=== PATIENT | male | born 1950 | race Two or more races ===

== ENCOUNTER 2022-08-25 11:15 | Inpatient (IN) | payer OTHER ==
[~2022-08-25] VITALS: Ht 170.2 cm; Wt 81.6 kg
[2022-08-25] MEDS ORDERED: ZESTRIL10 M1 PO (12:28)
[2022-08-25] MEDS ORDERED: CRESTO PO (12:28)
[2022-08-25] MEDS ORDERED: NASAL MIST126 ML (12:30)
[2022-08-25] MEDS ORDERED: TAMS0.4C PO (12:30)
[2022-09-20] MEDS ORDERED: GABAPENTIN300 M2 (10:59)
[2022-09-20] MEDS ORDERED: ROSUVASTATIN CA10 MG (10:59)
[2022-09-22] MEDS ORDERED: INTEGRA PLUS C1 EACH PO (07:18)
[2022-09-22] MEDS ORDERED: BACTRIM DS TAB1 EACH PO (07:18)
[2022-09-22] MEDS ORDERED: XARELTO10 MG PO (07:18)
[2022-09-22] MEDS ORDERED: OXYC1TAB9 PO (07:18)
== END 2022-09-22 17:02 | DRG 470 ==
LOC: SURH 08-30 11:15 → O/R 09-20 06:51 → SURH 09-20 09:30
PROVIDERS: ADMIT Orthopaedic Surgery Sports Medicine; ATTEND Orthopaedic Surgery Sports Medicine
PROC: 0SRC0J9 Replacement of Right Knee Joint with Synthetic Substitute, Cemented, Open Approach (ICD-10-PCS; principal; 2022-09-20 09:30)
DX: M17.11 Unilateral primary osteoarthritis, right knee (principal); I10 Essential (primary) hypertension; Z96.651 Presence of right artificial knee joint; Z20.822 Contact with and (suspected) exposure to COVID-19

== ENCOUNTER → 2022-09-14 07:22 | Outpatient (CLI) | payer OTHER ==
[~2022-09-14 07:22] MED LIST: CRESTO PO; GABAPENTIN300 M2; NASAL MIST126 ML; ROSUVASTATIN CA10 MG; TAMS0.4C PO; ZESTRIL10 M1 PO
== END | disposition home or self-care (01) ==
LOC: LAB 07:22
PROVIDERS: ATTEND Orthopaedic Surgery Sports Medicine
DX: D68.9 Coagulation defect, unspecified (principal); Z20.822 Contact with and (suspected) exposure to COVID-19; I10 Essential (primary) hypertension